=== PATIENT | male | born 1950 | race Caucasian/White ===

== ENCOUNTER 2016-07-07 21:43 | Emergency (ER) | payer MEDICARE, OTHER ==
[~2016-07-07] VITALS: Ht 182.9 cm; Wt 128.5 kg
[~2016-07-07 21:43] MED LIST: AMLO-145; ASPI-535; BENA5TAB2; CARV12.540; WARF5TAB72; ZOC10
[2016-07-07 22:13] VITALS: Ht 182.9 cm; Wt 128.5 kg
--- NOTE | 2016-07-07 23:22 | ERA ---
ER Documentation Chief Complaint Date/Time DATE: 07/07/16 TIME: 23:18 Chief Complaint epistaxis, takes coumadin, HPI Patient is a 66-year-old male presents with 3+ hours of bleeding. Patient is taking warfarin for irregular heart rhythm. Patient has a fibrillator. Patient has not done anything to relieve his symptoms. Patient has not been eating that many green vegetables. Patient has never had these symptoms before. Patient denies feeling dizzy, lightheaded, any near syncopal episodes, chest pain, shortness of breath, fatigue, headache. ROS All systems reviewed and are negative except as per history of present illness. Medications Home Meds Reported Medications Warfarin Sodium* (Coumadin*) 5 Mg Tablet, DAILY 06/24/11 Simvastatin (Simvastatin) 10 Mg Tablet, DAILY HS 06/24/11 Carvedilol* (Coreg*) 12.5 Mg Tablet, 2X DAILY 06/24/11 Benazepril Hcl* (Benazepril Hcl*) 5 Mg Tablet, 2X DAILY 06/24/11 Aspirin Ec (Aspir 81) 81 Mg Tablet.dr, DAILY 06/24/11 Amlodipine Besylate* (Amlodipine Besylate*) 5 Mg Tablet, DAILY 06/24/11 Allergies Allergies: Coded Allergies: Cephalexin (Verified Allergy, Intermediate, RASH, 06/26/11) cefazolin (Verified Allergy, Mild, RASH, 06/26/11) PMhx/Soc History of Surgery: Yes (DEFIBRILATOR PLACEMENT 06/18/11) Anesthesia Reaction: No Hx Neurological Disorder: No Hx Respiratory Disorders: No Hx Cardiac Disorders: Yes (HYPERTENTION) Hx Psychiatric Problems: No Hx Alcohol Use: Yes (SOCIAL) Hx Substance Use: No Hx Tobacco Use: Yes (QUIT 6 DAYS AGO) Physical Exam Vitals Vital Signs Date Time Temp Pulse Resp B/P Pulse Ox O2 Delivery O2 Flow Rate FiO2 07/07/16 22:13 98.8 62 20 146/97 97 Physical Exam Const: [facility] [age]-year-old male who seems in no acute distress Head: Atraumatic Eyes: Normal Conjunctiva ENT: Nose currently bleeding with moderate amount of blood visualized in the oropharynx; normal External Ears. Neck: Full range of motion..~ No meningismus. Resp: Clear to auscultation bilaterally Cardio: Regular rate and rhythm, no murmurs Abd: Soft, non tender, non distended. Normal bowel sounds Skin: No petechiae or rashes Back: No midline or flank tenderness Ext: No cyanosis, or edema Neur: Awake and alert Psych: Normal Mood and Affect Procedures/MDM Patient is actively bleeding and there is blood visualized and the oropharynx. Administered a nasal tampon. Lab results were within his normal therapeutic range. Patient is able to ambulate with a and seems to be in no distress. Will discharge and advised to come back in 24 hours to reevaluate and removal of the tampon. Departure Condition: Stable PRISCILLA FARIA PA-C Jul 07, 2016 23:22
[2016-07-07 23:54] LABS: ADD SCAN DIFF NO
[2016-07-08 00:04] LABS: BASOPHILS % 0.3 % (0.0-2.0); EOSINOPHILS % 0.5 % (0.0-7.0); HEMATOCRIT 40.6 % (42.0-52.0); HEMOGLOBIN 12.5 g/dl (14.0-18.0); LYMPHOCYTES # 1.5 10^3/ul (0.8-2.9); LYMPHOCYTES % 25.7 % (15.0-51.0); MEAN CORPUSCULAR HEMOGLOBIN 27.5 pg (29.0-33.0); MEAN CORPUSCULAR HGB CONC 30.8 g/dl (32.0-37.0); MEAN CORPUSCULAR VOLUME 89.4 fl (82.0-101.0); MEAN PLATELET VOLUME 11.7 fl (7.4-10.4); MONOCYTE # 0.5 10^3/ul (0.3-0.9); MONOCYTES % 7.9 % (0.0-11.0); NEUTROPHIL # 3.9 10^3/ul (1.6-7.5); NEUTROPHILS % 65.1 % (39.0-77.0); PLATELET COUNT 120 10^3/UL (140-415); RED BLOOD COUNT 4.54 10^6/ul (4.70-6.10); RED CELL DISTRIBUTION WIDTH 14.3 % (11.5-14.5)
[2016-07-08 00:10] LABS: INR 2.04; PROTIME 23.2 Sec (12.2-14.2); PT RATIO 1.8
--- NOTE | 2016-07-08 00:25 | QN ---
Documentation Comment This 66-year-old male signed out to me by RUBEN Beard, PT/INR was reviewed, it is within therapeutic range, patient was given copies of the laboratory tests results, after insertion of the nasal tampon, bleeding is controlled, patient feels much better. Patient was discharged according to RUBEN Beard instructions , is advised to return in 24 hours for removal of nasal tampon. KIRA LIN NP Jul 08, 2016 00:25
[2016-07-08 00:48] VITALS: BP 177/110; PULSE 65; RESP 18; TEMP 97.9
[2016-07-09] MEDS ORDERED: AZIT250T94 PO (06:23)
== END 2016-07-08 00:48 | disposition home or self-care (01) ==
LOC: FTE 21:43
DX: R04.0 Epistaxis (principal); I10 Essential (primary) hypertension; Z79.01 Long term (current) use of anticoagulants; Z79.82 Long term (current) use of aspirin; Z87.891 Personal history of nicotine dependence; Z95.810 Presence of automatic (implantable) cardiac defibrillator
CPT/HCPCS: 85025; 85610

== ENCOUNTER 2016-07-09 04:13 | Emergency (ER) | payer MEDICARE, OTHER ==
[~2016-07-09] VITALS: Ht 180.3 cm; Wt 126.5 kg
[2016-07-09 04:17] VITALS: Ht 180.3 cm; Wt 126.5 kg
--- NOTE | 2016-07-09 06:17 | ERA ---
ER Documentation Chief Complaint Date/Time DATE: 07/09/16 TIME: 06:12 Chief Complaint here to have rhino rocket removed HPI Patient presents for removal of a 4-1/2 inch nasal rocket roughly 30 hours after insertion . Patient claims that the bleeding has stopped. And he has no new symptoms at this time. Has been taking his warfarin as prescribed. ROS All systems reviewed and are negative except as per history of present illness. Medications Home Meds Active Scripts Azithromycin* (Zithromax*) 250 Mg Tablet, 250 MG PO BID for 4 Days, TAB Prov:PRISCILLA FARIA PA-C 07/09/16 Reported Medications Warfarin Sodium* (Coumadin*) 5 Mg Tablet, DAILY 06/24/11 Simvastatin (Simvastatin) 10 Mg Tablet, DAILY HS 06/24/11 Carvedilol* (Coreg*) 12.5 Mg Tablet, 2X DAILY 06/24/11 Benazepril Hcl* (Benazepril Hcl*) 5 Mg Tablet, 2X DAILY 06/24/11 Aspirin Ec (Aspir 81) 81 Mg Tablet.dr, DAILY 06/24/11 Amlodipine Besylate* (Amlodipine Besylate*) 5 Mg Tablet, DAILY 06/24/11 Allergies Allergies: Coded Allergies: Cephalexin (Verified Allergy, Intermediate, RASH, 06/26/11) cefazolin (Verified Allergy, Mild, RASH, 06/26/11) PMhx/Soc History of Surgery: Yes (defib placement) Anesthesia Reaction: No Hx Neurological Disorder: No Hx Respiratory Disorders: No Hx Cardiac Disorders: Yes (atrial fib, htn, high cholesterol) Hx Psychiatric Problems: No Hx Miscellaneous Medical Probl: No Hx Alcohol Use: No Hx Substance Use: No Hx Tobacco Use: No Smoking Status: Never smoker Physical Exam Vitals Vital Signs Date Time Temp Pulse Resp B/P Pulse Ox O2 Delivery O2 Flow Rate FiO2 07/09/16 04:17 97.5 68 16 168/101 94 Physical Exam Const: Patient sitting up in bed all dressed appears normal Head: Atraumatic Eyes: Normal Conjunctiva ENT: Normal External Ears, Nose and Mouth. Neck: Full range of motion..~ No meningismus. Resp: Clear to auscultation bilaterally Cardio: Regular rate and rhythm, no murmurs Abd: Soft, non tender, non distended. Normal bowel sounds Skin: No petechiae or rashes Back: No midline or flank tenderness Ext: No cyanosis, or edema Neur: Awake and alert Psych: Normal Mood and Affect Procedures/MDM Took a 4-1/2 inch nasal rocket out with no complications. There is still no blood visualized in the nasal canal. Reevaluation 15 minutes later showed no blood in the nasal canal nor the oropharynx. Will discharge with prescription for a prophylactic antibiotic - Augmentin. PRISCILLA FARIA PA-C Jul 09, 2016 06:16
[2016-07-09] MEDS ORDERED: AZIT250T94 PO (06:23)
== END 2016-07-09 06:46 | disposition home or self-care (01) ==
LOC: FTE 04:13
DX: Z48.00 Encounter for change or removal of nonsurgical wound dressing (principal); I10 Essential (primary) hypertension; Z79.82 Long term (current) use of aspirin; Z79.01 Long term (current) use of anticoagulants; Z95.810 Presence of automatic (implantable) cardiac defibrillator
CPT/HCPCS: 99283

== ENCOUNTER 2017-09-28 19:02 | Observation (INO) | END 2017-09-29 18:45 | disposition home or self-care (01) ==

== ENCOUNTER 2018-03-22 08:51 | Day surgery (SDC) | END 2018-03-22 15:31 | disposition home or self-care (01) ==